=== PATIENT | female | born 1970 | race Caucasian/White ===

== ENCOUNTER 2017-06-29 14:08 | Emergency (ER) | payer BC, MEDICAID, OTHER ==
--- NOTE | 2017-06-29 15:03 | EDM.PDOC ---
ED HPI GENERAL MEDICAL PROBLEM - General Chief Complaint: Respiratory Problem Stated Complaint: PAINFUL AND BURNING RASH ON BACK Time Seen by Provider: 06/29/17 14:41 Source of Information: Reports: Patient, RN Notes Reviewed - History of Present Illness INITIAL COMMENTS - FREE TEXT/NARRATIVE: 47-year-old female comes in with rash right lateral trunk. She started with burning discomfort 2 days ago area of present rash. Then the rash did start yesterday, more lesions are present today. This continues to be just an area of the right lateral and posterior back with one or 2 lesions anteriorly at the base of her breasts. There's been no rash on left side of her body. Shee does not feel ill in any other way. Treatments HEALTHCARE SPECIALIST: Reports: Other (see below) Other Treatments HEALTHCARE SPECIALIST: ES TYLENOL LAST NOC Right Back Pain Score (Numeric/FACES): 8 - Related Data Allergies Allergy/AdvReac Type Severity Reaction Status Date / Time No Known Allergies Allergy Verified 06/29/17 14:45 Home Meds: Home Meds Acyclovir 800 mg PO 5XDAY #30 tablet 06/29/17 [Rx] Hydrocodone/Acetaminophen [Bledsoe 5-325] 1 tab PO Q6HR PRN #14 tablet 06/29/17 [ Rx] Past Medical History Gastrointestinal History: Reports: Celiac Disease Musculoskeletal History: Reports: Other (See Below) Other Musculoskeletal History: LOW BONE DENISITY Social & Family History - Tobacco Use Smoking Status *Q: Never Smoker - Caffeine Use Caffeine Use: Reports: None - Recreational Drug Use Recreational Drug Use: No ED ROS GENERAL - Review of Systems Review Of Systems: See Below Constitutional: Denies: Fever, Chills, Diaphoresis HEENT: Reports: No Symptoms Respiratory: Denies: Shortness of Breath Cardiovascular: Reports: Other (chest wall pain area of rash) GI/Abdominal: Denies: Abdominal Pain, Nausea, Vomiting Musculoskeletal: Reports: Back Pain (burning discomfort area of rash) Skin: Reports: Rash (right lateral and posterior chest wall) Neurological: Denies: Numbness, Tingling ED EXAM, GENERAL - Physical Exam Exam: See Below General Appearance: Alert, Mild Distress Eye Exam: Bilateral Eye: PERRL Throat/Mouth: Normal Inspection Head: Atraumatic. No: Facial Swelling Neck: Supple, Full Range of Motion Respiratory/Chest: No Respiratory Distress, Lungs Clear, Normal Breath Sounds Cardiovascular: Regular Rate, Rhythm Neurological: Alert, Oriented, No Motor/Sensory Deficits Skin Exam: Warm, Dry, Rash (area of raised red lesions right lateral and posterior mid chest compatible with herpes zoster. She has just one or 2 lesions anterior chest. And otherwise totally clear) Course - Vital Signs Last Recorded V/S: Last Vital Signs Temp 95.6 F 06/29/17 14:49 Pulse 99 06/29/17 14:49 Resp 20 06/29/17 14:49 BP 122/92 H 06/29/17 14:49 Pulse Ox 97 06/29/17 14:49 Departure - Departure Time of Disposition: 15:15 Disposition: Home, Self-Care 01 Condition: Fair Clinical Impression: Shingles Qualifiers: Herpes zoster complications: without complications Qualified Code(s): B02.9 - Zoster without complications - Discharge Information Prescriptions: Hydrocodone/Acetaminophen [Bledsoe 5-325] 1 tab PO Q6HR PRN #14 tablet PRN Reason: Pain Acyclovir 800 mg PO 5XDAY #30 tablet Instructions: Shingles, [id number] Referrals: Gwendolyn Godfrey PA-C [Primary Care Provider] - Forms: ED Department Discharge Additional Instructions: acyclovir 800 mg 5 times daily until gone, ibuprofen or Aleve 3 times daily with food, you may also take Tylenol or hydrocodone 3-4 times daily for extra pain relief as needed, use the hydrocodone more at night or for severe pain. Do not drive or work when taking hydrocodone. Do not take Tylenol and hydrocodone at same time.
== END 2017-06-29 15:22 | disposition home or self-care (01) ==
LOC: JD.ED 14:08
DX: B02.9 Zoster without complications (principal)
CPT/HCPCS: 99283